=== PATIENT | female | born 1955 | race Caucasian/White ===

== ENCOUNTER 2019-11-13 20:43 | Inpatient (IN) ==
[2019-11-14] MEDS ORDERED: *HR* Promethazine 25 MG/ML VIAL IVP PRN (00:29)
[2019-11-14] MEDS ORDERED: Naloxone 0.4 MG/ML INJ IVP PRN (00:29)
[2019-11-14 00:51] LABS: Adenovirus Not Detected (Not Detect); Bordetella Pertussis Not Detected (Not Detect); Chlamydophila pneumoniae Not Detected (Not Detect); Coronavirus 229E Not Detected (Not Detect); Coronavirus HKU1 Not Detected (Not Detect); Coronavirus NL63 Not Detected (Not Detect); Coronavirus OC43 Not Detected (Not Detect); Human Metapneumovirus Not Detected (Not Detect); Human Rhinovirus/Enterovirus DETECTED (Not Detect); Influenza A Subtype 2009 H1 Not Detected (Not Detect); Influenza B Not Detected (Not Detect); Mycoplasma pneumoniae Not Detected (Not Detect); Parainfluenza Virus 1 Not Detected (Not Detect); Parainfluenza Virus 2 Not Detected (Not Detect); Parainfluenza Virus 3 Not Detected (Not Detect); Parainfluenza Virus 4 Not Detected (Not Detect); Respiratory Syncytial Virus Not Detected (Not Detect); SARS-CoV-2 Not Detected (Not Detect)
[2019-11-14] MEDS: 0.9 % Sodium Chloride 1,000 ML IVC SCH ×2 (01:45→11:45)
[2019-11-14] MEDS: Acetaminophen 325 MG TABLET PO PRN (01:54)
[2019-11-14] MEDS ORDERED: Perflutren Lipid Microsphere 1.3 ML in 0.9 % Sodium Chloride 8.7 ML IVP PRN (02:04)
[2019-11-14 02:05] LABS: Hematocrit 37.7 % (35.3-44.9); Hemoglobin 12.6 g/dL (11.5-15.4); Mean Corpuscular HGB Conc 33.4 g/dL (31.6-35.5); Mean Corpuscular Hemoglobin 29.1 pg (28.0-33.3); Mean Corpuscular Volume 87.1 fL (83.0-100.0); Mean Platelet Volume 10.2 fL (9.4-12.4); Platelet Count 222 K/mcL (140-400); Red Blood Count 4.33 M/mcL (3.82-4.97); Red Cell Distribution Width 14.4 % (11.5-14.5); White Blood Count 18.4 K/mcL (4.3-11.1)
[2019-11-14 02:09] LABS: INR 1.2; Prothrombin Time 13.1 Seconds (9.4-12.1)
[2019-11-14 02:25] LABS: Chol/HDL Ratio 5.4 (0-4.9); Magnesium 1.8 mg/dL (1.6-2.6); Phosphorous 2.4 mg/dL (2.7-4.5)
[2019-11-14 02:32] LABS: Eosinophils # 0.4 K/mcL (0.0-0.6); Lymphocytes # 2.9 K/mcL (0.6-4.6); Monocytes # 0.4 K/mcL (0.0-1.3); Neutrophils # 14.7 K/mcL (1.6-8.9); Platelet Estimate Normal (Normal)
[2019-11-14 02:39] LABS: Thyroid Stimulating Hormone 0.809 mcIU/mL (0.340-5.600)
[2019-11-14] MEDS: *HR* OxyCODONE Immed Rel 5 MG TABLET PO PRN ×2 (05:52→23:19)
[2019-11-14] MEDS ORDERED: Potassium Chloride 40 MEQ, Lidocaine 1% 2 ML in 0.9 % Sodium Chloride 500 ML IVPB ONE (07:48)
[2019-11-14 09:03] LABS: Hematocrit 35.1 % (35.3-44.9); Hemoglobin 11.9 g/dL (11.5-15.4); Mean Corpuscular HGB Conc 33.9 g/dL (31.6-35.5); Mean Corpuscular Hemoglobin 29.8 pg (28.0-33.3); Mean Platelet Volume 10.2 fL (9.4-12.4); Platelet Count 217 K/mcL (140-400); Red Blood Count 3.99 M/mcL (3.82-4.97); Red Cell Distribution Width 14.4 % (11.5-14.5); White Blood Count 21.8 K/mcL (4.3-11.1)
[2019-11-14 09:26] LABS: Alanine Aminotransferase 29 Units/L (7-52); Albumin 2.5 g/dL (3.5-5.7); Albumin/Globulin Ratio 0.8 (1.1-2.2); Alkaline Phosphatase 134 Units/L (34-104); Aspartate Amino Transferase 27 Units/L (13-39); BUN/Creatinine Ratio 24 (6-26); Bilirubin,Total 0.5 mg/dL (0.3-1.0); Blood Urea Nitrogen 14 mg/dL (8-23); Calcium 8.2 mg/dL (8.6-10.3); Carbon Dioxide 23 mEq/L (23-29); Chloride 111 mEq/L (98-107); Globulin 3.1 g/dL (2.4-3.5); Glucose 103 mg/dL (70-105); Osmolality,Calculated 289 (280-300); Potassium 3.5 mEq/L (3.5-5.1); Sodium 139 mEq/L (136-145); Total Protein 5.6 g/dL (6.4-8.9); eGFR For African Americans > 60 (> 60); eGFR For Non-African Americans > 60 (> 60)
[2019-11-14 09:28] LABS: Dohle Bodies Present (Not Present); Eosinophils # 0.2 K/mcL (0.0-0.6); Lymphocytes # 1.7 K/mcL (0.6-4.6); Monocytes # 0.7 K/mcL (0.0-1.3); Neutrophils # 19.2 K/mcL (1.6-8.9); Platelet Estimate Normal (Normal)
[2019-11-14 10:36] LABS: Estimated Average Glucose 140 mg/dl; Hemoglobin A1C 6.5 %
[2019-11-14] MEDS ORDERED: *HR* Heparin 5,000 UNIT/ML VIAL IVP ONE (10:51)
[2019-11-14] MEDS ORDERED: *HR* Heparin 5,000 UNIT/ML VIAL IVP PRN ×2 (10:51)
[2019-11-14] MEDS ORDERED: Heparin 25,000 UNIT/250 ML D5W 25,000 UNIT/250 ML IV.SOLN IVC SCH (11:00)
[2019-11-14 11:42] LABS: Hematocrit 39.7 % (35.3-44.9); Hemoglobin 13.3 g/dL (11.5-15.4); Mean Corpuscular HGB Conc 33.5 g/dL (31.6-35.5); Mean Corpuscular Hemoglobin 29.5 pg (28.0-33.3); Mean Platelet Volume 10.3 fL (9.4-12.4); Platelet Count 247 K/mcL (140-400); Red Blood Count 4.51 M/mcL (3.82-4.97); Red Cell Distribution Width 14.7 % (11.5-14.5); White Blood Count 23.5 K/mcL (4.3-11.1)
[2019-11-14 11:56] LABS: Heparin anti-factor XA UFH < 0.04 IU/mL (0.30-0.70); INR 1.1; Prothrombin Time 12.8 Seconds (9.4-12.1)
[2019-11-14] MEDS: Nitroglycerin 0.4 MG TAB.SUBL SL PRN ×2 (11:56→12:07)
[2019-11-14] MEDS ORDERED: Isovue-370 500 ML BOTTLE IVP ONE (13:10)
[2019-11-14] MEDS: Aspirin 81 MG TAB.CHEW PO SCH (15:03)
[2019-11-15 02:00] LABS: Hematocrit 34.5 % (35.3-44.9); Mean Corpuscular HGB Conc 33.3 g/dL (31.6-35.5); Mean Corpuscular Hemoglobin 29.1 pg (28.0-33.3); Mean Corpuscular Volume 87.3 fL (83.0-100.0); Mean Platelet Volume 10.2 fL (9.4-12.4); Platelet Count 219 K/mcL (140-400); Red Blood Count 3.95 M/mcL (3.82-4.97); Red Cell Distribution Width 14.3 % (11.5-14.5); White Blood Count 23.4 K/mcL (4.3-11.1)
[2019-11-15 02:09] LABS: Hemoglobin 11.5 g/dL (11.5-15.4)
[2019-11-15 02:21] LABS: BUN/Creatinine Ratio 18 (6-26); Blood Urea Nitrogen 11 mg/dL (8-23); Calcium 7.8 mg/dL (8.6-10.3); Carbon Dioxide 20 mEq/L (23-29); Chloride 105 mEq/L (98-107); Glucose 131 mg/dL (70-105); Osmolality,Calculated 279 (280-300); Potassium 3.4 mEq/L (3.5-5.1); Sodium 134 mEq/L (136-145); eGFR For African Americans > 60 (> 60); eGFR For Non-African Americans > 60 (> 60)
[2019-11-15 02:50] LABS: Lymphocytes # 1.4 K/mcL (0.6-4.6); Monocytes # 0.9 K/mcL (0.0-1.3); Neutrophils # 21.1 K/mcL (1.6-8.9); Platelet Estimate Normal (Normal)
[2019-11-15] MEDS: lisinopriL 20 MG TABLET PO SCH (09:11)
[2019-11-15] MEDS: Aspirin 81 MG TAB.CHEW PO SCH (09:11)
[2019-11-15] MEDS ORDERED: Ipratropium/Albuterol Neb 3 ML IH PRN (14:45)
[2019-11-15] MEDS: Acetaminophen 325 MG TABLET PO PRN (15:55)
[2019-11-15] MEDS: *HR* Heparin 5,000 UNIT/ML VIAL SQ SCH (17:51)
[2019-11-15] MEDS: *HR* OxyCODONE Immed Rel 5 MG TABLET PO PRN (23:20)
[2019-11-16] MEDS: *HR* Heparin 5,000 UNIT/ML VIAL SQ SCH ×2 (05:56→17:32)
[2019-11-16] MEDS ORDERED: predniSONE 20 MG TABLET PO SCH (09:00)
[2019-11-16] MEDS ORDERED: methylPREDNISolone 125 MG/2 ML VIAL IVP ONE (09:04)
[2019-11-16] MEDS: Aspirin 81 MG TAB.CHEW PO SCH (09:10)
[2019-11-16] MEDS: lisinopriL 20 MG TABLET PO SCH (09:24)
[2019-11-16 10:15] LABS: Mean Platelet Volume 10.4 fL (9.4-12.4); Red Cell Distribution Width 14.5 % (11.5-14.5)
[2019-11-16] MEDS: Ipratropium/Albuterol Neb 3 ML IH SCH ×5 (10:15→23:28)
[2019-11-16 10:16] LABS: Basophils # 0.1 K/mcL (0.0-0.2); Basophils % 0.3 %; Hematocrit 36.9 % (35.3-44.9); Hemoglobin 12.6 g/dL (11.5-15.4); Immature Granulocytes % 1.6 % (0-4); Lymphocytes % 3.9 %; Mean Corpuscular HGB Conc 34.1 g/dL (31.6-35.5); Mean Corpuscular Hemoglobin 29.8 pg (28.0-33.3); Mean Corpuscular Volume 87.2 fL (83.0-100.0); Monocytes # 1.9 K/mcL (0.0-1.3); Monocytes % 7.3 %; Platelet Count 171 K/mcL (140-400); Red Blood Count 4.23 M/mcL (3.82-4.97); Segmented Neutrophils % 86.9 %; White Blood Count 26.4 K/mcL (4.3-11.1)
[2019-11-16 10:25] LABS: Neutrophils # 22.9 K/mcL (1.6-8.9)
[2019-11-16 10:36] LABS: BUN/Creatinine Ratio 25 (6-26); Blood Urea Nitrogen 16 mg/dL (8-23); Calcium 7.8 mg/dL (8.6-10.3); Carbon Dioxide 24 mEq/L (23-29); Chloride 100 mEq/L (98-107); Glucose 124 mg/dL (70-105); Osmolality,Calculated 279 (280-300); Potassium 3.8 mEq/L (3.5-5.1); Sodium 133 mEq/L (136-145); eGFR For African Americans > 60 (> 60); eGFR For Non-African Americans > 60 (> 60)
[2019-11-16 10:39] LABS: Troponin I 0.45 ng/mL (< 0.04)
[2019-11-16 10:41] LABS: Platelet Estimate Normal (Normal); Reactive Lymphocytes Present (Not Present)
[2019-11-16 10:54] LABS: ABG Base Excess 2 mEq/L (-2 to 3); ABG HCO3 25 mEq/L (21-27); ABG Oxygen Saturation 94 % (95-98); ABG PCO2 34 mmHg (35-45); ABG PH 7.48 pH Units (7.32-7.45); ABG PO2 64 mmHg (85-104); ABG TCO2 26 mEq/L (20-26)
[2019-11-16] MEDS ORDERED: Furosemide 40 MG/4 ML VIAL IVP ONE (12:59)
[2019-11-16] MEDS: Acetaminophen 325 MG TABLET PO PRN (21:39)
[2019-11-17 01:11] LABS: Acinetobacter baumannii by PCR Not Detected (Not Detect); Candida albicans by PCR Not Detected (Not Detect); Candida glabrata by PCR Not Detected (Not Detect); Candida krusei by PCR Not Detected (Not Detect); Candida parapsilosis by PCR Not Detected (Not Detect); Candida tropicalis by PCR Not Detected (Not Detect); Enterobacter cloacae Cmplx PCR Not Detected (Not Detect); Enterobacteriaceae by PCR Not Detected (Not Detect); Enterococcus by PCR Not Detected (Not Detect); Escherichia coli by PCR Not Detected (Not Detect); Klebsiella oxytoca by PCR Not Detected (Not Detect); Klebsiella pneumoniae by PCR Not Detected (Not Detect); Proteus by PCR Not Detected (Not Detect); Pseudomonas aeruginosa by PCR Not Detected (Not Detect); Serratia marcescens by PCR Not Detected (Not Detect); Staphylococcus aureus by PCR DETECTED (Not Detect); Streptococcus agalactiae(B)PCR Not Detected (Not Detect); Streptococcus by PCR Not Detected (Not Detect); Streptococcus pneumoniae PCR Not Detected (Not Detect); Streptococcus pyogenes (A) PCR Not Detected (Not Detect); mecA Methicillin-Resist Gene DETECTED (Not Detect)
[2019-11-17 02:13] LABS: Hemoglobin 11.2 g/dL (11.5-15.4); Immature Granulocytes % 2.1 % (0-4); Lymphocytes % 2.1 %
[2019-11-17 02:15] LABS: Basophils # 0.1 K/mcL (0.0-0.2); Basophils % 0.3 %; Hematocrit 32.6 % (35.3-44.9); Lymphocytes # 0.5 K/mcL (0.6-4.6); Mean Corpuscular HGB Conc 34.4 g/dL (31.6-35.5); Mean Corpuscular Hemoglobin 29.3 pg (28.0-33.3); Mean Corpuscular Volume 85.3 fL (83.0-100.0); Mean Platelet Volume 10.6 fL (9.4-12.4); Monocytes # 0.8 K/mcL (0.0-1.3); Monocytes % 3.2 %; Neutrophils # 23.7 K/mcL (1.6-8.9); Platelet Count 165 K/mcL (140-400); Red Blood Count 3.82 M/mcL (3.82-4.97); Red Cell Distribution Width 14.1 % (11.5-14.5); Segmented Neutrophils % 92.3 %; White Blood Count 25.7 K/mcL (4.3-11.1)
[2019-11-17 02:37] LABS: BUN/Creatinine Ratio 39 (6-26); Blood Urea Nitrogen 23 mg/dL (8-23); Calcium 7.6 mg/dL (8.6-10.3); Carbon Dioxide 27 mEq/L (23-29); Chloride 100 mEq/L (98-107); Glucose 191 mg/dL (70-105); Osmolality,Calculated 291 (280-300); Sodium 136 mEq/L (136-145); eGFR For African Americans > 60 (> 60); eGFR For Non-African Americans > 60 (> 60)
[2019-11-17 02:52] LABS: Platelet Estimate Normal (Normal); Toxic Granulation Present (Not Present)
[2019-11-17] MEDS: Ipratropium/Albuterol Neb 3 ML IH SCH ×5 (04:50→19:42)
[2019-11-17] MEDS: *HR* Heparin 5,000 UNIT/ML VIAL SQ SCH ×2 (05:46→17:19)
[2019-11-17 06:29] LABS: Amphetamine Screen,Urine Negative ng/mL (Cutoff=1000); Barbiturate Screen,Urine Negative ng/mL (Cutoff=200)
[2019-11-17 06:30] LABS: Benzodiazepines Screen,Urine Negative ng/mL (Cutoff=300); Cannabinoid Screen,Urine Negative ng/mL (Cutoff = 50); Cocaine Screen,Urine Negative ng/mL (Cutoff= 300); Opiate Screen,Urine Negative ng/mL (Cutoff=300); Phencyclidine Screen,Urine Negative ng/mL (Cutoff=25)
[2019-11-17] MEDS ORDERED: Potassium Chloride 40 MEQ, Lidocaine 1% 2 ML in 0.9 % Sodium Chloride 500 ML IVPB ONE (07:37)
[2019-11-17] MEDS: Aspirin 81 MG TAB.CHEW PO SCH (08:24)
[2019-11-17] MEDS: lisinopriL 20 MG TABLET PO SCH (08:24)
[2019-11-17] MEDS ORDERED: predniSONE 20 MG TABLET PO SCH (09:00)
[2019-11-17] MEDS ORDERED: Furosemide 40 MG TABLET PO SCH (13:15)
[2019-11-17 19:47] LABS: ABG Base Excess 2 mEq/L (-2 to 3); ABG HCO3 25 mEq/L (21-27); ABG Oxygen Saturation 95 % (95-98); ABG PCO2 36 mmHg (35-45); ABG PH 7.46 pH Units (7.32-7.45); ABG PO2 69 mmHg (85-104); ABG TCO2 26 mEq/L (20-26)
[2019-11-18] MEDS: Ipratropium/Albuterol Neb 3 ML IH SCH ×7 (00:10→23:33)
[2019-11-18] MEDS ORDERED: methylPREDNISolone 125 MG/2 ML VIAL IVP ONE (03:26)
[2019-11-18 05:10] LABS: Nucleated Red Blood Cells 0.1 /100 WBC (0)
[2019-11-18 05:12] LABS: Hematocrit 30.7 % (35.3-44.9); Hemoglobin 10.6 g/dL (11.5-15.4); Mean Corpuscular HGB Conc 34.5 g/dL (31.6-35.5); Mean Corpuscular Hemoglobin 29.1 pg (28.0-33.3); Mean Corpuscular Volume 84.3 fL (83.0-100.0); Platelet Count 194 K/mcL (140-400); Red Blood Count 3.64 M/mcL (3.82-4.97); Red Cell Distribution Width 14.3 % (11.5-14.5)
[2019-11-18] MEDS: *HR* Heparin 5,000 UNIT/ML VIAL SQ SCH ×2 (05:15→16:57)
[2019-11-18 05:18] LABS: White Blood Count 37.2 K/mcL (4.3-11.1)
[2019-11-18 05:25] LABS: BUN/Creatinine Ratio 56 (6-26); Blood Urea Nitrogen 30 mg/dL (8-23); Calcium 8.1 mg/dL (8.6-10.3); Carbon Dioxide 24 mEq/L (23-29); Chloride 106 mEq/L (98-107); Glucose 151 mg/dL (70-105); Osmolality,Calculated 295 (280-300); Potassium 3.7 mEq/L (3.5-5.1); Sodium 138 mEq/L (136-145); eGFR For African Americans > 60 (> 60); eGFR For Non-African Americans > 60 (> 60)
[2019-11-18 06:07] LABS: Lymphocytes # 1.5 K/mcL (0.6-4.6); Monocytes # 0.7 K/mcL (0.0-1.3); Platelet Estimate Normal (Normal); Smudge Cells Present (Not Present)
[2019-11-18] MEDS: lisinopriL 20 MG TABLET PO SCH (09:29)
[2019-11-18] MEDS: Furosemide 40 MG/4 ML VIAL IVP SCH (09:31)
[2019-11-18] MEDS: Piperacillin/Tazobactam 3.375 GM in 0.9 % Sodium Chloride Mini Bag 100 ML IVPB SCH ×3 (09:31→23:48)
[2019-11-18] MEDS: Aspirin 81 MG TAB.CHEW PO SCH (09:31)
[2019-11-18] MEDS: MethylPREDNISolone 40 MG/ML VIAL IVP SCH ×2 (16:52→23:48)
[2019-11-19] MEDS: Ipratropium/Albuterol Neb 3 ML IH SCH ×6 (03:35→23:26)
[2019-11-19 04:06] LABS: Basophils # 0.1 K/mcL (0.0-0.2); Basophils % 0.2 %; Hemoglobin 10.2 g/dL (11.5-15.4); Immature Granulocytes % 1.3 % (0-4); Lymphocytes # 0.4 K/mcL (0.6-4.6); Lymphocytes % 1.6 %; Mean Corpuscular Hemoglobin 29.1 pg (28.0-33.3); Mean Corpuscular Volume 85.7 fL (83.0-100.0); Mean Platelet Volume 11.5 fL (9.4-12.4); Monocytes % 3.7 %; Neutrophils # 24.1 K/mcL (1.6-8.9); Nucleated Red Blood Cells 0.1 /100 WBC (0); Platelet Count 186 K/mcL (140-400); Red Cell Distribution Width 14.7 % (11.5-14.5); Segmented Neutrophils % 93.2 %; White Blood Count 25.8 K/mcL (4.3-11.1)
[2019-11-19 04:15] LABS: BUN/Creatinine Ratio 35 (6-26); Blood Urea Nitrogen 30 mg/dL (8-23); Carbon Dioxide 27 mEq/L (23-29); Chloride 99 mEq/L (98-107); Glucose 360 mg/dL (70-105); Osmolality,Calculated 305 (280-300); Potassium 3.7 mEq/L (3.5-5.1); Sodium 137 mEq/L (136-145); eGFR For African Americans > 60 (> 60); eGFR For Non-African Americans > 60 (> 60)
[2019-11-19] MEDS: *HR* Heparin 5,000 UNIT/ML VIAL SQ SCH (04:52)
[2019-11-19] MEDS: MethylPREDNISolone 40 MG/ML VIAL IVP SCH ×3 (08:55→23:48)
[2019-11-19] MEDS: Aspirin 81 MG TAB.CHEW PO SCH (08:55)
[2019-11-19] MEDS: lisinopriL 20 MG TABLET PO SCH (08:55)
[2019-11-19] MEDS: Furosemide 40 MG/4 ML VIAL IVP SCH (08:55)
[2019-11-19] MEDS: Piperacillin/Tazobactam 3.375 GM in 0.9 % Sodium Chloride Mini Bag 100 ML IVPB SCH ×3 (08:55→23:48)
[2019-11-19] MEDS ORDERED: *HR* Metoprolol 5 MG/5 ML VIAL IVP ONE (11:42)
[2019-11-19] MEDS: Furosemide 40 MG/4 ML VIAL IV SCH (19:26)
[2019-11-19] MEDS: Budesonide/Formoterol 160/4.5 1 PUFF INH IH SCH (20:21)
[2019-11-20 03:49] LABS: Basophils % 0.2 %
[2019-11-20 03:50] LABS: Basophils # 0.1 K/mcL (0.0-0.2); Hematocrit 32.7 % (35.3-44.9); Hemoglobin 10.8 g/dL (11.5-15.4); Immature Granulocytes % 1.4 % (0-4); Lymphocytes # 0.5 K/mcL (0.6-4.6); Lymphocytes % 1.5 %; Mean Corpuscular Hemoglobin 28.6 pg (28.0-33.3); Mean Corpuscular Volume 86.7 fL (83.0-100.0); Mean Platelet Volume 11.1 fL (9.4-12.4); Monocytes # 0.6 K/mcL (0.0-1.3); Monocytes % 1.9 %; Neutrophils # 30.5 K/mcL (1.6-8.9); Platelet Count 227 K/mcL (140-400); Red Blood Count 3.77 M/mcL (3.82-4.97); Red Cell Distribution Width 14.6 % (11.5-14.5)
[2019-11-20 03:51] LABS: White Blood Count 32.1 K/mcL (4.3-11.1)
[2019-11-20 04:01] LABS: BUN/Creatinine Ratio 39 (6-26); Blood Urea Nitrogen 29 mg/dL (8-23); Calcium 7.7 mg/dL (8.6-10.3); Carbon Dioxide 34 mEq/L (23-29); Chloride 95 mEq/L (98-107); Glucose 220 mg/dL (70-105); Osmolality,Calculated 293 (280-300); Potassium 3.8 mEq/L (3.5-5.1); Sodium 135 mEq/L (136-145); eGFR For African Americans > 60 (> 60); eGFR For Non-African Americans > 60 (> 60)
[2019-11-20] MEDS: Ipratropium/Albuterol Neb 3 ML IH SCH ×3 (04:04→11:16)
[2019-11-20 04:20] LABS: Anisocytosis 1+ (Not Present); Platelet Estimate Normal (Normal); Toxic Granulation Present (Not Present)
[2019-11-20] MEDS ORDERED: 0.9 % Sodium Chloride 500 ML IVC ONE (07:36)
[2019-11-20] MEDS ORDERED: Lidocaine Viscous Oral Soln 15 ML SOLUTION MM PRN (07:36)
[2019-11-20] MEDS: Budesonide/Formoterol 160/4.5 1 PUFF INH IH SCH (08:06)
[2019-11-20] MEDS: *HR* FentaNYL (PF) 100 MCG/2 ML VIAL IVP PRN ×2 (08:30→08:35)
[2019-11-20] MEDS: *HR* Midazolam HCl 5 MG/5 ML VIAL IVP PRN ×3 (08:30→08:40)
[2019-11-20] MEDS: Aspirin 81 MG TAB.CHEW PO SCH (09:57)
[2019-11-20] MEDS: lisinopriL 20 MG TABLET PO SCH (09:58)
[2019-11-20] MEDS: Furosemide 40 MG/4 ML VIAL IV SCH (10:31)
[2019-11-20] MEDS: MethylPREDNISolone 40 MG/ML VIAL IVP SCH (10:31)
[2019-11-20] MEDS: Piperacillin/Tazobactam 3.375 GM in 0.9 % Sodium Chloride Mini Bag 100 ML IVPB SCH (10:31)
[2019-11-20 10:39] VITALS: BP 111/67
[2019-11-20] MEDS ORDERED: Aminoglycoside Consult 1 EACH MC ONE (14:25)
[2019-11-20] MEDS ORDERED: DAPTOmycin 250 MG in 0.9 % Sodium Chloride 100 ML IVPB SCH (15:00)
[2019-11-22 09:42] LABS: Acinetobacter baumannii by PCR Not Detected (Not Detect); Candida albicans by PCR Not Detected (Not Detect); Candida glabrata by PCR Not Detected (Not Detect); Candida krusei by PCR Not Detected (Not Detect); Candida parapsilosis by PCR Not Detected (Not Detect); Candida tropicalis by PCR Not Detected (Not Detect); Enterobacter cloacae Cmplx PCR Not Detected (Not Detect); Enterobacteriaceae by PCR Not Detected (Not Detect); Enterococcus by PCR Not Detected (Not Detect); Escherichia coli by PCR Not Detected (Not Detect); Klebsiella oxytoca by PCR Not Detected (Not Detect); Klebsiella pneumoniae by PCR Not Detected (Not Detect); Proteus by PCR Not Detected (Not Detect); Pseudomonas aeruginosa by PCR Not Detected (Not Detect); Serratia marcescens by PCR Not Detected (Not Detect); Staphylococcus aureus by PCR DETECTED (Not Detect); Streptococcus agalactiae(B)PCR Not Detected (Not Detect); Streptococcus by PCR Not Detected (Not Detect); Streptococcus pneumoniae PCR Not Detected (Not Detect); Streptococcus pyogenes (A) PCR Not Detected (Not Detect); mecA Methicillin-Resist Gene DETECTED (Not Detect)
== END 2019-11-20 14:26 | disposition short-term general hospital (02) | DRG 720 ==
LOC: 2ANU → SUATTDRO 23:09
PROVIDERS: ADMIT Internal Medicine; ATTEND Family Medicine